=== PATIENT | male | born 1965 | race Caucasian/White ===

== ENCOUNTER 2019-06-12 16:41 | Emergency (ER) | payer BC ==
[~2019-06-12] VITALS: Ht 175.3 cm; Wt 109.1 kg
[2019-06-12 16:55] VITALS: TEMP 97.7
[2019-06-12] MEDS ORDERED: NEURONTIN600 MG/TAB PO (18:00)
[2019-06-12] MEDS ORDERED: MOBIC15 MG PO (18:01)
[2019-06-12] MEDS ORDERED: FLEXERIL 1010 MG/TAB PO (18:02)
[2019-06-12 18:33] LABS: BASO # 0.1 (0.0-0.2); BASO % 1.2 % (0.0-2.0); EOS # 0.3 (0.0-0.7); EOS % 3.6 % (0-4.0); GRAN # 5.6 (1.4-6.5); HEMATOCRIT 45.1 % (42.0-52.0); HEMOGLOBIN 15.8 g/dl (13.5-18.0); LYMPH # 2.5 (1.2-3.4); LYMPH % 26.9 % (20.0-51.0); MEAN CELL VOLUME 81 fl (80.0-100.0); MEAN CORPUSCULAR HEMOGLOBIN 28 pg (27.0-31.0); MEAN CORPUSCULAR HGB CONC 35 g/dl (33.0-37.0); MEAN PLATELET VOLUME 10.4 fl (7.4-10.4); MONO # 0.7 (0.1-0.6); MONO % 7.8 % (1.7-9.3); PLATELET COUNT 223 K/mm3 (130-400); RED BLOOD COUNT 5.57 M/mm3 (4.20-5.60); REDCELL DISTRIBUTION WIDTH-CV 12.7 % (11.5-14.5)
[2019-06-12 18:39] LABS: ALBUMIN 4.2 gm/dL (3.5-5.0); BILIRUBIN,TOTAL 0.7 mg/dL (0.0-1.0); CREATININE, serum 0.87 (0.66-1.25); POTASSIUM 3.8 mmol/L (3.4-5.0)
[2019-06-12] MEDS ORDERED: PRINZIDE 12.5 M1 TAB PO (19:03)
[2019-06-12 19:09] LABS: THYROID STIMULATING HORMONE 1.51 uIU/mL (0.465-4.680)
[2019-06-12 19:59] VITALS: BP 152/96; PULSE 78
== END 2019-06-12 19:53 | disposition home or self-care (01) ==
LOC: COL.ER 16:41
PROVIDERS: Emergency Medicine
DX: I10 Essential (primary) hypertension (principal); F41.9 Anxiety disorder, unspecified